=== PATIENT | female | born 1995 | race Caucasian/White ===

== ENCOUNTER → 2021-10-15 07:46 | Outpatient (CLI) | payer OTHER, SELFPAY ==
[2021-10-15 08:46] LABS: COVID19 -Nasal RAPID Negative (Negative)
== END ==
PROVIDERS: PCP Student in an Organized Health Care Education/Training Program; Referring Provider Student in an Organized Health Care Education/Training Program; Visit Provider Student in an Organized Health Care Education/Training Program
DX: Z20.822 Contact with and (suspected) exposure to COVID-19 (principal)
CPT/HCPCS: 87635; C9803

== ENCOUNTER → 2021-10-15 10:40 | Outpatient (CLI) | payer OTHER, SELFPAY ==
--- NOTE | 2021-10-23 08:22 | PM.PFT.1 ---
Pulmonary Function Test Referral & Results Date Patient Seen: 10/15/21 Requesting provider: Tom Jin Results: The spirometry demonstrates an FVC of 3.57 L which is 100% of predicted. The FEV1 was measured at 2.99 L which is 98% of predicted. The FEV1/FVC ratio was 84 which is 98% of predicted. Following the administration of bronchodilator there was no appreciable change to above normal numbers Lung volumes show an SVC of 3.65 L which is 104% of predicted. The diffusing capacity was measured at 28.56 which is 132% of predicted. The maximum voluntary ventilation was normal Interpretation: This study demonstrates normal pulmonary function
== END ==
PROVIDERS: PCP Student in an Organized Health Care Education/Training Program; Referring Provider Student in an Organized Health Care Education/Training Program; Visit Provider Student in an Organized Health Care Education/Training Program
DX: R06.02 Shortness of breath (principal); J98.8 Other specified respiratory disorders; Z20.822 Contact with and (suspected) exposure to COVID-19
CPT/HCPCS: 87635; 94060; 94726; 94729; C9803